=== PATIENT | female | born 1945 | race Caucasian/White ===

== ENCOUNTER → 2018-02-01 | Outpatient (CLI) | payer MEDICARE, OTHER | LOC: M.ULTRA 07:46 | DX: E04.2 Nontoxic multinodular goiter (principal) ==

== ENCOUNTER → 2018-05-11 | Outpatient (CLI) | payer MEDICARE, OTHER | LOC: M.ULTRA 09:30 | DX: K80.20 Calculus of gallbladder without cholecystitis without obstruction (principal); K21.9 Gastro-esophageal reflux disease without esophagitis ==

== ENCOUNTER 2018-07-08 09:10 | Inpatient (IN) | payer MEDICARE, OTHER ==
[~2018-07-08] VITALS: Ht 160 cm; Wt 76.7 kg
[2018-07-08 09:14] VITALS: BP 113/56
[2018-07-08] MEDS ORDERED: ASPIR 8181 MG PO (09:23)
[2018-07-08] MEDS ORDERED: FISH OIL 1,001000 M2 PO (09:23)
[2018-07-08] MEDS ORDERED: CENTRUM SILVER1 EAC4 PO (09:23)
[2018-07-08] MEDS ORDERED: TUMS PO (09:24)
[2018-07-08] MEDS ORDERED: VITAMIN D2000 UNIT PO (09:24)
[2018-07-08] MEDS ORDERED: VITAMIN B-1250 MC2 PO (09:24)
[2018-07-08] MEDS ORDERED: CRESTOR40 MG PO (09:25)
[2018-07-08] MEDS ORDERED: LOPRESSOR25 PO (09:25)
[2018-07-08] MEDS ORDERED: TRAZODONE HCL50 MG PO (09:25)
[2018-07-08] MEDS ORDERED: TYLENOL EXTRA500 MG PO (09:25)
[2018-07-08] MEDS ORDERED: NORCO 5-325 TA1 EACH PO (09:25)
[2018-07-08] MEDS ORDERED: LISINOPRIL10 MG PO (09:25)
[2018-07-08] MEDS ORDERED: GAS RELIEF80 MG PO (09:26)
[2018-07-08] MEDS ORDERED: IPRATROPIU0.2 MG/1 M INH (09:26)
[2018-07-08] MEDS ORDERED: ZOFRAN ODT4 MG PO (09:26)
[2018-07-08] MEDS ORDERED: DOXYCYCLINE 10100 MG PO (09:27)
[2018-07-08] MEDS ORDERED: OXYGEN MISCELL (09:27)
[2018-07-08 09:41] LABS: HEMOGLOBIN 11.9 gm/dL (12.0-15.0); MCH 29.4 pg (26.0-34.0); MCHC 32.2 g/dL (28.0-37.0); MCV 91.4 fL (80.0-100.0); MPV 7.9 fl. (7.2-11.1); NUCLEATED RBCS 0 /100WBC; PLATELET COUNT* 380 thou/uL (150-400); RBC 4.05 mil/uL (4.20-5.00); RDW-CV 15.2 % (10.5-14.5); WBC 19.7 thou/uL (4.0-11.0)
[2018-07-08 09:52] LABS: INR 1.1; PROTIME 11.4 Seconds (9.20-11.50)
[2018-07-08 09:53] LABS: CALCIUM 9.1 mg/dL (8.5-10.1); CREATININE 2.4 mg/dL (0.6-1.3); POTASSIUM 3.7 mmol/L (3.5-5.1)
[2018-07-08 10:03] LABS: ALBUMIN 1.8 g/dL (3.4-5.0); TOTAL BILIRUBIN 0.6 mg/dL (<0.1-1.0); TOTAL PROTEIN 7.2 g/dL (6.4-8.2); TROPONIN-I LEVEL 0.1 ng/mL (<0.06)
--- NOTE | 2018-07-08 10:32 | NUR ---
DR HINES AT BEDSIDE
--- NOTE | 2018-07-08 10:51 | NUR ---
DR HINES VERBALIEZES APPROPRIATE PLACEMENT OF CENTRAL LINE AT THIS TIME
[2018-07-08 11:57] LABS: PCO2 24.5 mmHg (35.0-45.0); PO2 60.1 mmHg (75.0-100.0)
[2018-07-08 12:04] LABS: ABSOLUTE EOSINOPHILS 0.2 thou/uL (0.0-0.7); ABSOLUTE MONOCYTES 1.4 thou/uL (0.0-1.2); ABSOLUTE NEUTROPHILS 16.2 thou/uL (1.6-8.1); ANISOCYTOSIS Occasional; METAMYELOCYTES 1 %; PLATELET ESTIMATE ADEQUATE
[2018-07-08 15:12] VITALS: BP 90/48
[2018-07-08 15:30] VITALS: BP 93/52
--- NOTE | 2018-07-08 16:00 | NUR ---
[facility] CATH PLACED-NO URINE OUTPUT. BLADDER SCAN REVEALS <10 ML
[2018-07-08 17:49] LABS: HEMATOCRIT 30.6 % (37.0-47.0); MCH 30.3 pg (26.0-34.0); MCHC 30.8 g/dL (28.0-37.0); MPV 8.1 fl. (7.2-11.1); RBC 3.11 mil/uL (4.20-5.00); RDW-CV 15.7 % (10.5-14.5); WBC 26.6 thou/uL (4.0-11.0)
[2018-07-08 17:54] LABS: HEMOGLOBIN 9.4 gm/dL (12.0-15.0); MCV 98.4 fL (80.0-100.0)
[2018-07-08 17:58] LABS: CREATININE 2.5 mg/dL (0.6-1.3)
[2018-07-08 17:59] LABS: CALCIUM 6.1 mg/dL (8.5-10.1)
[2018-07-08 18:01] LABS: MAGNESIUM 2.2 mg/dL (1.8-2.4); PHOSPHORUS* 7.3 mg/dL (2.5-4.9)
[2018-07-08 18:43] LABS: TROPONIN-I LEVEL 0.58 ng/mL (<0.06)
--- NOTE | 2018-07-08 18:48 | NUR ---
MULTIPLE CODE BLUES THIS EVENING. SEE CODE BLUE FLOW SHEETS. FAMILY AT BS AND UPDATED ON PLAN OF CARE. DR MORE AT BS. CONSULTS NOTIFIED. CODE ICE NOT INITIATED AT THIS TIME PT WILL NOT TOLERATE. DR MORE AWARE. PT INTUBATED AND SEDATED
--- NOTE | 2018-07-08 19:00 | NUR ---
FAMILY AT . FAMILY HAS HAD LENGTHY CONVERSATION WITH DR MORE AND HAS DECIDED TO WITHDRAW CARE-EXTUBATE TURN OFF BP MEDS AND NOT HAVE CRRT ONCE DAUGHTER ARRIVES. DTR IS A FEW HOURS AWAY. FAMILY HAS REQUESTED THAT PT BE A DNR IF SHE WERE TO ARREST IN THE MEANTIME 1903 HR IN 30S. PT PULSELESS. PRONOUNCED BY DR MORE AT 1905. FAMILY AT
[2018-07-08 19:28] LABS: APTT 42.5 Seconds (25.0-31.3); FIBRINOGEN 285 mg/dL (200-340); PROTIME 17.3 Seconds (9.20-11.50)
[2018-07-08 19:29] LABS: INR 1.7
--- NOTE | 2018-07-08 19:34 | NUR ---
PTS SON IN LAW, DANDY SEGOVIA, REQUESTING CONTACT BE MADE TO [facility] FOR EMERGENCY LEAVE FOR HIS SON WHO IS ACTIVE DUTY . [facility] EMERGENCY COMMUNICATIONS CONTACTED AT , SPOKE TO DAVID WHO PROVIDED CASE # [id number].
--- NOTE | 2018-07-08 19:54 | NUR ---
[facility] REFERRAL COMPLETED. PER [facility], PT IS NOT A CANDIDATE FOR ORGAN OR TISSUE DONATION. REFERRAL NUMBER [id number].
--- NOTE | 2018-07-09 00:40 | NUR ---
PTS DAUGHTER, MICHAEL MILLER, ARRIVING AT THIS TIME. JOINED AT BEDSIDE BY MULTIPLE FAMILY MEMBERS TO DISCUSS ARRANGEMENTS.
--- NOTE | 2018-07-09 01:40 | NUR ---
DAUGHTER, MICHAEL, EXPRESSED CONCERN ABOUT PTS CARE WHILE AT ANOTHER HOSPITAL EARLIER THIS MONTH AND FEAR THAT MALPRACTICE AND/OR POOR CARE MAY HAVE CONTRIBUTED TO PTS DECLINE AND SUBSEQUENT . MICHAEL STATES SHE WOULD LIKE AN AUTOPSY PERFORMED. MICHAEL, AND REMAINDER OF FAMILY, EDUCATED ABOUT [facility] CORONERS DECLINE OF THE CASE AND HOW TO PROCEED WITH PRIVIATE AUTOPSY, VERBALIZED UNDERSTANDING. CALL PLACED TO [facility] AT FAMILIES REQUEST. SPOKE TO LUCY WHO ARRANGED TRANSPORT OF BODY. ALSO AT MICHAEL'S REQUEST LUCY INFORMED THAT NO ENBALMING PROCEDURES ARE TO BEGIN UNTIL FAMILY CAN DETERMINE WHEN AND IF AN AUTOPSY WILL BE PERFORMED, LUCY SPOKE BACK THIS REQUEST AND STATED THEIR FACILITY CAN ACCOMODATE THIS. MICHAEL AND HER SPOUSE AND DAUGHTER LEFT AFTER TRANSOPRT ARRANGEMENTS WERE MADE.
--- NOTE | 2018-07-09 02:40 | NUR ---
TRANSPORT SERVICE ON SITE, PT LEFT [facility] AT THIS TIME.
--- NOTE | 2018-07-11 10:31 | EKG ---
[place] [address] ELECTROCARDIOGRAM REPORT Name: ROGERS THOMPSON Room: [address] DIS IN M.R.#: [id number] Admission: 07/08/18 Attend Phys: Oni Laws MD Discharge: 07/08/18 Date of : 45 Report #: [id number] THIS REPORT FOR: //name// [facility] Test Date: 2018-07-08 Test Time: 16:34:43 Pat Name: ROGERS THOMPSON Department: Room: [facility] Gender: F Automobile Sales Representative: : 1945 Requested By: Ever Hickman Order Number: [id number] MD: Sebas Lal Measurements Intervals [place] Rate: 141 P: 48 MA: 107 QRS: 97 QRSD: 102 T: -21 QT: 318 QTc: 487 Interpretive Statements Sinus tachycardia Right axis deviation Low voltage, precordial leads Nonspecific T abnormalities, inferior leads Borderline prolonged QT interval No previous ECG available for comparison Electronically Signed On 07-11-2018 10:31:31 CDT by Sebas Lal [email or web address] <ELECTRONICALLY SIGNED> By: Sebas Lal MD, [facility] 07/11/18 1031 1634 1634 Sebas Lal MD, [facility] /EPI
--- NOTE | 2018-07-11 12:52 | EKG ---
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
--- NOTE | 2018-07-11 14:25 | EKG ---
[place] [address] ELECTROCARDIOGRAM REPORT Name: ROGERS THOMPSON Room: [address] DIS IN M.R.#: [id number] Admission: 07/08/18 Attend Phys: Oni Laws MD Discharge: 07/08/18 Date of : 45 Report #: [id number] THIS REPORT FOR: //name// [facility] ED Test Date: 2018-07-08 Test Time: 14:23:53 Pat Name: ROGERS THOMPSON Department: Room: [address] Gender: F Network Systems Analyst: : 1945 Requested By: Ever Hickman Order Number: [id number] Reading MD: Sebas Lal Measurements Intervals [place] Rate: 117 P: PA: QRS: 72 QRSD: 88 T: 15 QT: 332 QTc: 464 Interpretive Statements nsr, sinus tachycardia Borderline T abnormalities, anterior leads Baseline wander in lead(s) II,III,aVF Compared to ECG 07/08/2018 09:15:31 T-wave abnormality now present Sinus tachycardia no longer present Electronically Signed On 07-11-2018 14:25:11 CDT by Sebas Lal [email or web address] <ELECTRONICALLY SIGNED> By: Sebas Lal MD, FAC 07/11/18 1425 1423 1423 Sebas Lal MD, FAC /EPI
== END 2018-07-08 19:05 | DRG 871 ==
LOC: M.ERS 09:10 → M.TBA-ER 10:53 → M.ICU 16:09
PROVIDERS: Family Medicine; Internal Medicine; ADMIT Internal Medicine
PROC: 5A1935Z Respiratory Ventilation, Less than 24 Consecutive Hours (ICD-10-PCS; principal; 2018-07-08)
PROC: 0BH17EZ Insertion of Endotracheal Airway into Trachea, Via Natural or Artificial Opening (ICD-10-PCS; principal; 2018-07-08)
PROC: 02HV33Z Insertion of Infusion Device into Superior Vena Cava, Percutaneous Approach (ICD-10-PCS; principal; 2018-07-08)
DX: A41.9 Sepsis, unspecified organism (principal); R65.21 Severe sepsis with septic shock; N17.0 Acute kidney failure with tubular necrosis; E43 Unspecified severe protein-calorie malnutrition; G92 Toxic encephalopathy; J96.01 Acute respiratory failure with hypoxia; I21.A1 Myocardial infarction type 2; J18.1 Lobar pneumonia, unspecified organism; K81.0 Acute cholecystitis; J90 Pleural effusion, not elsewhere classified; E78.5 Hyperlipidemia, unspecified; I10 Essential (primary) hypertension; K75.9 Inflammatory liver disease, unspecified; E86.9 Volume depletion, unspecified; I48.91 Unspecified atrial fibrillation; R00.0 Tachycardia, unspecified; Z90.49 Acquired absence of other specified parts of digestive tract; Z68.29 Body mass index [BMI] 29.0-29.9, adult; Z66 Do not resuscitate